=== PATIENT | female | born 1995 | race African-American/Black ===

== ENCOUNTER 2023-01-07 01:29 | Emergency (ER) | payer SELFPAY ==
--- NOTE | 2023-01-07 | ECG_ITS ---
Test Reason : CHEST PAIN Blood Pressure : / mmHG Vent. Rate : 086 BPM Atrial Rate : 086 BPM P-R Int : 166 ms QRS Dur : 078 ms QT Int : 376 ms P-R-T Axes : 041 051 024 degrees QTc Int : 449 ms Normal sinus rhythm Normal ECG No previous ECGs available Referred By: Generic ED Physician Electronically Signed By:Serafin Robb
[2023-01-07 01:39] VITALS: BP 141/96; PULSE 78; RESP 16; TEMP 36.9; O2SAT 100; BMI 30.1
--- NOTE | 2023-01-07 02:03 | MHC.EDTECH ---
PATIENT EKG TAKEN AND WAS READ BY PROVIDER ,BLOOD DRAWN AND SENT TO LAB .
[2023-01-07 02:05] LABS: Hematocrit 36.1 % (37.0-47.0); Hemoglobin 10.7 g/dl (12.0-16.0); Mean Corpuscular HGB Conc 29.6 g/dl (31.0-35.0); Mean Corpuscular Hemoglobin 21.3 pg (27.0-33.0); Mean Corpuscular Volume 71.9 fL (80.0-98.0); Mean Platelet Volume 9.3 fL (9.4-12.3); Platelet Count 345 X10*3/uL (160-400); Red Blood Count 5.02 X10*6/uL (4.20-5.50); Red Cell Distribution Width 17.3 % (11.0-16.0); White Blood Count 9.2 X10*3/uL (4.8-10.8)
[2023-01-07 02:29] LABS: Alanine Aminotransferase 15 U/L (0-31); Albumin Level 4.4 g/dL (3.5-5.0); Alkaline Phosphatase 65 U/L (39-117); Anion Gap 15 (12-20); Aspartate Amino Transferase 19 U/L (5-31); Bilirubin Total 0.3 mg/dL (0.0-1.0); Blood Urea Nitrogen 11 mg/dL (9-16); Calcium 9.2 mg/dL (8.4-10.2); Carbon Dioxide 22 mmol/L (22-29); Chloride 107 mmol/L (96-108); Creatinine Clr Calc Pharmacy 92.9; Estimated Glomerular Filt Rate > 60; Glucose Random 103 mg/dL (60-115); Potassium 3.5 mmol/L (3.3-5.1); Sodium 140 mmol/L (135-145); Total Protein 7.4 g/dL (6.5-8.0)
[2023-01-07 02:38] LABS: Troponin-I High Sensitivity < 2.7 ng/L (<3.5-17.0)
--- NOTE | 2023-01-07 04:11 | PC.NURSE ---
ATTEMPTED TO CALL PATIENT INTO ED FROM WAITING ROOM. REGISTRATION REPORTS THAT THE PATIENT LEFT STATING MY DOCTOR'S OFFICE WILL OPEN SOON
== END 2023-01-07 04:21 | disposition left against medical advice (07) ==
PROVIDERS: Emergency Provider Emergency Medicine
DX: R07.9 Chest pain, unspecified (principal)
CPT/HCPCS: 36415; 80053; 84484; 85027; 93005; 99283

== ENCOUNTER → 2023-01-07 01:50 | Outpatient (BNV) | payer SELFPAY | PROVIDERS: Emergency Provider Emergency Medicine; Visit Provider Internal Medicine Cardiovascular Disease | DX: R07.9 Chest pain, unspecified (principal) | CPT/HCPCS: 93010 ==

== ENCOUNTER 2023-02-01 18:13 | Emergency (ER) | payer OTHER, SELFPAY ==
[2023-02-01 18:38] VITALS: BP 127/77; PULSE 72; RESP 20; TEMP 36.7; O2SAT 100; BMI 30.3
--- NOTE | 2023-02-01 18:40 | ED.CHESTPAIN ---
HPI - Chest Pain General Chief Complaint: General Medical Stated Complaint: chest pain with cough, vomiting Related Data Allergies Allergy/AdvReac Type Severity Reaction Status Date / Time No Known Allergies Allergy Unverified 03/05/20 19:46 [No Known Allergies*] PMFSH Social History Social History Smoked in Last 30 Days: Yes Use of substances other than those prescribed or required for medical reasons: No Advance Directives: No Advance Directives Information Provided: No Physical Exam Vital Signs: Vital Signs: Last Vital Signs Temp 98.0 F 02/01/23 18:38 Pulse 72 02/01/23 18:38 Resp 20 02/01/23 18:38 BP 127/77 02/01/23 18:38 Pulse Ox 100 02/01/23 18:38 O2 Del Method Room Air 02/01/23 18:38 BMI result Body Mass Index 30.3 Course Course Course Narrative: RME: 27-year-old female presenting to the ED complaining of dry cough, chest congestion, chest pain, nausea and vomiting x 2 days. Reports 2 episodes of emesis today. EKG, labs, CXR, UA, viral testing ordered Full HPI, ROS and PE to be performed by primary ED provider. Discharge Plan Discharge Clinical Impression: Atypical chest pain Patient Disposition: Elopement Discharge Date/Time: 02/01/23 19:52
== END 2023-02-01 19:52 | disposition left against medical advice (07) ==
PROVIDERS: Emergency Provider Emergency Medicine
DX: R07.89 Other chest pain (principal); R05.9 Cough, unspecified; R11.2 Nausea with vomiting, unspecified
CPT/HCPCS: 99281

== ENCOUNTER 2023-02-02 15:42 | Emergency (ER) | payer OTHER, SELFPAY ==
--- NOTE | ~2023-02-02 | XR_ITS ---
EXAMINATION: XR CHEST CLINICAL INFORMATION: Left upper chest pressure. COMPARISON: None available. TECHNIQUE: Frontal view of the chest was obtained. FINDINGS: The lungs are clear. The heart and mediastinal structures are unremarkable. Mild thoracolumbar dextroscoliosis. XR/XR chest 1V IMPRESSION: No acute cardiopulmonary process.
--- NOTE | 2023-02-02 15:45 | ECG_ITS ---
Test Reason : cp Blood Pressure : / mmHG Vent. Rate : 097 BPM Atrial Rate : 097 BPM P-R Int : 142 ms QRS Dur : 070 ms QT Int : 330 ms P-R-T Axes : 048 050 031 degrees QTc Int : 419 ms Normal sinus rhythm Normal ECG When compared with ECG of 07-JAN-2023 01:50, No significant change was found Referred By: Valentine Courtney Electronically Signed By:HAKEEM DUCKWORTH
[2023-02-02 16:00] VITALS: BP 128/77; PULSE 85; RESP 17; TEMP 36.9; O2SAT 100; BMI 30.7
[2023-02-02 16:18] LABS: MANUAL DIFF FLAG NO
[2023-02-02 16:22] LABS: Basophils Percent Auto 0.3 % (0-2); Eosinophils Absolute Auto 0.1 X10*3/uL (0.0-0.4); Eosinophils Percent Auto 0.7 % (0-4); Hematocrit 34.6 % (37.0-47.0); Hemoglobin 10.6 g/dl (12.0-16.0); Imm Gran Abs Auto 0.01 X10*3/uL (0.00-0.03); Imm Gran Pct Auto 0.1 % (0.0-0.4); Lymphocytes Percent Auto 28.9 % (20-40); Mean Corpuscular HGB Conc 30.6 g/dl (31.0-35.0); Mean Corpuscular Hemoglobin 21.7 pg (27.0-33.0); Mean Corpuscular Volume 70.8 fL (80.0-98.0); Mean Platelet Volume 9.7 fL (9.4-12.3); Monocytes Absolute Auto 0.4 X10*3/uL (0.1-1.2); Monocytes Percent Auto 6.4 % (2-11); Neutrophils Absolute Auto 4.4 x10*3/uL (2.0-8.3); Neutrophils Percent Auto 63.6 % (45-73); Platelet Count 347 X10*3/uL (160-400); Red Blood Count 4.89 X10*6/uL (4.20-5.50); Red Cell Distribution Width 17.1 % (11.0-16.0); White Blood Count 6.9 X10*3/uL (4.8-10.8)
[2023-02-02 16:41] LABS: Anion Gap 12 (12-20); Blood Urea Nitrogen 6 mg/dL (9-16); Calcium 9.4 mg/dL (8.4-10.2); Carbon Dioxide 23 mmol/L (22-29); Chloride 107 mmol/L (96-108); Creatinine Clr Calc Pharmacy 83.5; Estimated Glomerular Filt Rate > 60; Glucose Random 117 mg/dL (60-115); Potassium 3.7 mmol/L (3.3-5.1); Sodium 138 mmol/L (135-145)
[2023-02-02 17:04] LABS: Troponin-I High Sensitivity < 2.7 ng/L (<3.5-17.0)
--- NOTE | 2023-02-02 17:49 | ED_ITS ---
HPI - General Adult General Chief complaint: General Medical Stated complaint: Fatigue/ L chest pain Time Seen by Provider: 02/02/23 17:08 Source: patient Mode of arrival: ambulatory Limitations: no limitations History of Present Illness HPI narrative: Patient comes to the emergency room complaining of 3 days chest pressure that moves around the chest anywhere between the left to the middle to the right, occasional palpitations. No chest pain or shortness of breath. No nausea vomiting diarrhea, no recent URI symptoms, no fever chills. Related Data Allergies Allergy/AdvReac Type Severity Reaction Status Date / Time No Known Allergies Allergy Unverified 03/05/20 19:46 [No Known Allergies*] Review of Systems Review of Systems: Constitutional : No Weight loss, No Fever, No Chills, No Night Sweats, No Fatigue, No Malaise ENT/Mouth : No Hearing loss, No Ear Pain, No Nasal Congestion, No Sinus Pain, No Hoarseness, No sore throat, No Rhinorrhea, No Swallowing Difficulty Eyes: No Eye Pain, No Swelling, No Redness, No Foreign Body, No Discharge, No Vision Changes Cardiovascular : No Chest Pain, complaining of intermittent chest pressure that intermittently moves from the left side to the right side of the chest No SOB, No Dyspnea on Exertion, No Orthopnea, No Edema, complaining of intermittent Palpitations Respiratory : No Cough, No Sputum, No Wheezing, No Smoke Exposure, No Dyspnea Gastrointestinal : No Nausea, No Vomiting, No Diarrhea, No Constipation, No abdominal Pain, No Hematochezia, No Melena Genitourinary : no irregular bleeding, No Dysuria, No Urinary Frequency, No Hematuria, No Urinary Incontinence, No Urgency, No Flank Pain, No Urinary Flow Changes, No Hesitancy Musculoskeletal : No joint pain, No Myalgias, No Joint Swelling Skin : No Skin Lesions, No rash Neuro : No Weakness, No Numbness, No Paresthesias, No Loss of Consciousness, No Dizziness, No Headache Psych : No Anxiety/Panic, No Depression, No SI/HI/AH/VH, No Social Issues, Heme/Lymph: No Bruising, No Bleeding,No Lymphadenopathy Endocrine : No Polyuria, No Polydipsia, No Temperature Intolerance PMFSH Social History Social History Advance Directives: No Advance Directives Information Provided: No Physical Exam ED Vital Signs: Vital Signs - 24 hr 02/02/23 16:00 Temperature 98.4 F Pulse Rate 85 Respiratory Rate 17 Blood Pressure 128/77 Pulse Oximetry 100 Oxygen Delivery Method Room Air BMI result Body Mass Index 30.7 Const Other: Appearance: Alert. Oriented X3. No acute distress. Eyes: Pupils equal, round and reactive to light. ENT: Pharynx normal. Neck: Normal inspection. Neck supple. No lymph nodes noted. No crepitus CVS: Normal heart rate and rhythm. Pulses normal. Normal S1 and S2 Respiratory: No respiratory distress. Breath sounds normal. No Wheezing. No rales Abdomen: Soft and nontender. No rigidity. No distention. Skin: Skin warm and dry. Normal skin color. Normal skin turgor. Extremities: No lower extremity edema. No Lacerations. No Rash Neuro: Oriented X 3. No motor deficit. No sensory deficit. Moving all extremities. No slurred speech. CN 2 through 12 grossly intact Psych: calm, cooperative, normal affect Medical Decision Making Medical Decision Making [facility] Narrative: -, heart rate 97, no ST segment depression or elevation, no T-wave inversion, QTC 419 -patient's troponin negative, white blood cell count normal, chemistry normal -my interpretation of chest x-ray: No infiltrates, no rib fractures -while patient was in the emergency room, no arrhythmias were captured, patient asymptomatic. Discussed with the patient that if she continues having intermittent symptoms, the next best step would be a Holter monitor evaluation, referred through her primary care physician Differential Diagnosis Differential Diagnoses: The differential diagnosis associated with the presentation includes (Tachycardia, atrial flutter, atrial fibrillation, anxiety, pleurisy) Admission/Observation Consideration of admission/observation: Escalation of care including admission/observation considered (Patient came in complaining of chest pain, admission was considered) Lab Data [facility] Lab Attestation statement: I reviewed the patient's lab results. 02/02/23 16:13 02/02/23 16:13 Labs: Lab Results 02/02/23 02/02/23 02/02/23 Range/Units 16:13 16:13 16:13 WBC 6.9 (4.8-10.8) X10*3/uL RBC 4.89 (4.20-5.50) X10*6/uL Hgb 10.6 L (12.0-16.0) g/dl Hct 34.6 L (37.0-47.0) % MCV 70.8 L (80.0-98.0) fL MCH 21.7 L (27.0-33.0) pg MCHC 30.6 L (31.0-35.0) g/dl RDW 17.1 H (11.0-16.0) % Plt Count 347 (160-400) X10*3/uL MPV 9.7 (9.4-12.3) fL Immature Gran % (Auto) 0.1 (0.0-0.4) % Neut % (Auto) 63.6 (45-73) % Lymph % (Auto) 28.9 (20-40) % [place] % (Auto) 6.4 (2-11) % Eos % (Auto) 0.7 (0-4) % Baso % (Auto) 0.3 (0-2) % Lymph # (Auto) 2.0 (1.2-4.9) X10*3/uL [place] # (Auto) 0.4 (0.1-1.2) X10*3/uL Eos # (Auto) 0.1 (0.0-0.4) X10*3/uL Baso # (Auto) 0.0 (0.0-0.2) X10*3/uL Abs Immat Gran (auto) 0.01 (0.00-0.03) X10*3/uL Absolute Neuts (auto) 4.4 (2.0-8.3) x10*3/uL Absolute Nucleated RBC 0.000 (0.0-0.012) X10*3/uL Nucleated RBC % (auto) 0.0 (0.0-0.2) /100WBC Sodium 138 (135-145) mmol/L Potassium 3.7 (3.3-5.1) mmol/L Chloride 107 (96-108) mmol/L Carbon Dioxide 23 (22-29) mmol/L Anion Gap 12 (12-20) BUN 6 L (9-16) mg/dL Creatinine 0.90 (0.5-1.4) mg/dL Estim Creat Clear Calc 83.5 Estimated GFR > 60 Random Glucose 117 H (60-115) mg/dL Calcium 9.4 (8.4-10.2) mg/dL Troponin I High Sens < 2.7 (<3.5-17.0) ng/L Independent Interpretation I performed an independent interpretation of an: Plain X-Ray Radiology Impression Discussion of test interpretation with radiology: I have reviewed the radiologist's reading. Radiologist Impression: FINDINGS: The lungs are clear. The heart and mediastinal structures are unremarkable. Mild thoracolumbar dextroscoliosis. XR/XR chest 1V IMPRESSION: No acute cardiopulmonary process. Critical Care Time Critical Care Time Critical Care Time: Yes Total Critical Care Time: 45 Attestation: I have personally provided critical care time. Time includes review of lab data, radiology results, discussion with consultants, and monitoring for potential decompensation. Intervention performed as documented. Discharge Plan Discharge Clinical Impression: Atypical chest pain, Palpitations Patient Disposition: Home, Self-Care Instructions: Heart Palpitations (ED), Chest Pain (ED) Additional Instructions: Please follow-up with your primary care physician tomorrow. If you have any w orsening or new symptoms, please return to the emergency room or call 911
[2023-02-02 17:59] VITALS: BP 114/77; PULSE 85; RESP 15; O2SAT 100
== END 2023-02-02 18:35 | disposition home or self-care (01) ==
PROVIDERS: Emergency Provider Emergency Medicine
DX: R07.89 Other chest pain (principal); R00.2 Palpitations
CPT/HCPCS: 36415; 71045; 80048; 84484; 85025; 93005; 99283; 99284

== ENCOUNTER 2023-02-19 03:23 | Emergency (ER) | payer OTHER, SELFPAY ==
[2023-02-19 03:31] VITALS: BP 132/92; PULSE 86; RESP 12; TEMP 37.2; O2SAT 100; BMI 29.3
--- NOTE | 2023-02-19 03:46 | ECG_ITS ---
Test Reason : chest pain Blood Pressure : / mmHG Vent. Rate : 070 BPM Atrial Rate : 070 BPM P-R Int : 164 ms QRS Dur : 080 ms QT Int : 390 ms P-R-T Axes : 048 060 032 degrees QTc Int : 421 ms Normal sinus rhythm with sinus arrhythmia Possible Left atrial enlargement Borderline ECG When compared with ECG of 02-FEB-2023 15:50, No significant change was found Referred By: Generic ED Physician Electronically Signed By:HAKEEM DUCKWORTH
--- NOTE | 2023-02-19 04:11 | PC.NURSE ---
PT AOx4, pt reporting intermittnet substernal CP that worsens when lying down, that does not radiate any where. EKG obtained and reviewed by provider, blood drawn and sent to lab. Pt stated i was driving and my left calf started tightening, more difficulty walking upstairs, felt dizzy and have had some palpitations.
[2023-02-19 04:12] LABS: MANUAL DIFF FLAG NO
[2023-02-19 04:13] LABS: Basophils Percent Auto 0.5 % (0-2); Eosinophils Absolute Auto 0.1 X10*3/uL (0.0-0.4); Eosinophils Percent Auto 1.1 % (0-4); Hematocrit 34.8 % (37.0-47.0); Hemoglobin 10.4 g/dl (12.0-16.0); Imm Gran Abs Auto 0.01 X10*3/uL (0.00-0.03); Imm Gran Pct Auto 0.2 % (0.0-0.4); Lymphocytes Absolute Auto 2.6 X10*3/uL (1.2-4.9); Lymphocytes Percent Auto 40.4 % (20-40); Mean Corpuscular HGB Conc 29.9 g/dl (31.0-35.0); Mean Corpuscular Hemoglobin 21.2 pg (27.0-33.0); Mean Corpuscular Volume 70.9 fL (80.0-98.0); Mean Platelet Volume 8.8 fL (9.4-12.3); Monocytes Absolute Auto 0.5 X10*3/uL (0.1-1.2); Monocytes Percent Auto 8.1 % (2-11); Neutrophils Absolute Auto 3.2 x10*3/uL (2.0-8.3); Neutrophils Percent Auto 49.7 % (45-73); Platelet Count 313 X10*3/uL (160-400); Red Blood Count 4.91 X10*6/uL (4.20-5.50); Red Cell Distribution Width 17.1 % (11.0-16.0); White Blood Count 6.5 X10*3/uL (4.8-10.8)
[2023-02-19 04:19] VITALS: PULSE 86
--- NOTE | 2023-02-19 04:26 | ED_ITS ---
HPI - Chest Pain General Chief Complaint: Chest Pain Stated Complaint: Chest discomfort Time Seen by Provider: 02/19/23 04:22 Source: patient Mode of arrival: ambulatory Limitations: no limitations History of Present Illness HPI narrative: Patient with anxiety and frequent chest pain been here 2 times last month been having left parasternal chest pain for last 1 week was seen at [facility] 2 days ago with workup negative comes here for similar chest pain which increases on palpation and movements of the upper extremities and taking deep breath no fever no chills no cough Related Data Previous Rx's Medication Instructions Recorded ibuprofen 600 mg tablet 600 mg PO Q6H PRN fever or pain 02/19/23 #30 tabs lorazepam 1 mg tablet (Ativan) 1 mg PO BEDTIME PRN anxiety/sleep 02/19/23 #10 tabs Allergies Allergy/AdvReac Type Severity Reaction Status Date / Time tomato Allergy Rash Verified 02/19/23 04:15 Review of Systems Review of Systems: Yes all other systems are reviewed and are negative [facility] Social History Social History Alcohol intake: never Smoked in Last 30 Days: No Use of substances other than those prescribed or required for medical reasons: No Advance Directives: No Advance Directives Information Provided: Yes Patient : No Physical Exam Vital Signs: Vital Signs: Last Vital Signs Temp 98.9 F 02/19/23 03:31 Pulse 86 02/19/23 03:31 Resp 12 02/19/23 03:31 BP 132/92 H 02/19/23 03:31 Pulse Ox 100 02/19/23 03:31 O2 Del Method Room Air 02/19/23 03:31 BMI result Body Mass Index 29.3 Appearance: Alert. Oriented X3. No acute distress. Anxious Eyes: PERRLA, No Nystagmus ENT: Pharynx normal. Oral Mucosa moist Neck: Normal inspection. Neck supple. CVS: Normal heart rate and rhythm. Pulses normal. Mid chest wall tenderness left 2nd ICS tenderness Respiratory: No respiratory distress. Equal air entry bilateral, no whe ezing/rales/rhonchi Abdomen: Soft and nontender. Bowel sounds are present, Skin: Skin warm and dry. Normal skin color. Normal skin turgor. Extremities: No lower extremity edema. No calf tenderness Neuro: Oriented X 3. No motor deficit. Medications Administered Discontinued Medications Generic Name Dose Route Start Last Admin Trade Name Chris PRN Reason Stop Dose Admin Ibuprofen 600 mg 02/19/23 04:33 02/19/23 05:25 Ibuprofen 600 Mg Tablet PO 02/19/23 04:34 600 mg ONCE ONE Administration Medical Decision Making Medical Decision Making [facility] Narrative: Patient has atypical chest pain for a month been to hospital multiple times multiple assessed troponin negative EKG normal it seems to be anxious had d ifficulty in sleeping. Will discharge patient home on Ativan for anxiety and ibuprofen for pain heart score 0 Differential Diagnosis Differential Diagnoses: The differential diagnosis associated with the presentation includes Costochondritis/atypical chest pain/chest pain/angina/anxiety Lab Data [facility] Lab Attestation statement: I reviewed the patient's lab results. 02/19/23 03:55 02/19/23 03:55 Labs: Lab Results 02/19/23 02/19/23 02/19/23 Range/Units 03:55 03:55 03:55 WBC 6.5 (4.8-10.8) X10*3/uL RBC 4.91 (4.20-5.50) X10*6/uL Hgb 10.4 L (12.0-16.0) g/dl Hct 34.8 L (37.0-47.0) % MCV 70.9 L (80.0-98.0) fL MCH 21.2 L (27.0-33.0) pg MCHC 29.9 L (31.0-35.0) g/dl RDW 17.1 H (11.0-16.0) % Plt Count 313 (160-400) X10*3/uL MPV 8.8 L (9.4-12.3) fL Immature Gran % (Auto) 0.2 (0.0-0.4) % Neut % (Auto) 49.7 (45-73) % Lymph % (Auto) 40.4 H (20-40) % [place] % (Auto) 8.1 (2-11) % Eos % (Auto) 1.1 (0-4) % Baso % (Auto) 0.5 (0-2) % Lymph # (Auto) 2.6 (1.2-4.9) X10*3/uL [place] # (Auto) 0.5 (0.1-1.2) X10*3/uL Eos # (Auto) 0.1 (0.0-0.4) X10*3/uL Baso # (Auto) 0.0 (0.0-0.2) X10*3/uL Abs Immat Gran (auto) 0.01 (0.00-0.03) X10*3/uL Absolute Neuts (auto) 3.2 (2.0-8.3) x10*3/uL Absolute Nucleated RBC 0.000 (0.0-0.012) X10*3/uL Nucleated RBC % (auto) 0.0 (0.0-0.2) /100WBC Sodium 140 (135-145) mmol/L Potassium 3.9 (3.3-5.1) mmol/L Chloride 108 (96-108) mmol/L Carbon Dioxide 23 (22-29) mmol/L Anion Gap 13 (12-20) BUN 6 L (9-16) mg/dL Creatinine 0.85 (0.5-1.4) mg/dL Estim Creat Clear Calc 89.9 Estimated GFR > 60 Random Glucose 121 H (60-115) mg/dL Calcium 9.9 (8.4-10.2) mg/dL Troponin I High Sens < 2.7 (<3.5-17.0) ng/L Independent Interpretation I performed an independent interpretation of an: EKG Interpretation: Normal sinus rhythm heart rate 70 beats per minute normal interval normal axis no acute ischemia Discharge Plan Discharge Clinical Impression: Costalchondritis, Anxiety Patient Disposition: Home, Self-Care Instructions: Costochondritis (ED), Anxiety (ED) Additional Instructions: Take ibuprofen for pain and Ativan for anxiety and sleep Follow with PCP as needed Prescriptions: New ibuprofen 600 mg tablet 600 mg PO Q6H PRN (Reason: fever or pain) Qty: 30 0RF lorazepam [Ativan] 1 mg tablet 1 mg PO BEDTIME PRN (Reason: anxiety/sleep) Qty: 10 0RF Interventions: ED Discharge Assessment Last Done: 02/19/23 05:36 Discharge Date/Time: 02/19/23 05:36
[2023-02-19 04:28] LABS: Anion Gap 13 (12-20); Blood Urea Nitrogen 6 mg/dL (9-16); Calcium 9.9 mg/dL (8.4-10.2); Carbon Dioxide 23 mmol/L (22-29); Chloride 108 mmol/L (96-108); Creatinine Clr Calc Pharmacy 89.9; Estimated Glomerular Filt Rate > 60; Glucose Random 121 mg/dL (60-115); Potassium 3.9 mmol/L (3.3-5.1); Sodium 140 mmol/L (135-145)
[2023-02-19 04:47] LABS: Troponin-I High Sensitivity < 2.7 ng/L (<3.5-17.0)
[2023-02-19] MEDS: Ibuprofen 600 MG TABLET PO (05:25)
== END 2023-02-19 05:36 | disposition home or self-care (01) ==
PROVIDERS: Emergency Provider Internal Medicine; PCP Nurse Practitioner Family
DX: R07.89 Other chest pain (principal); M94.0 Chondrocostal junction syndrome [Tietze]; F41.1 Generalized anxiety disorder; F43.0 Acute stress reaction; Z79.899 Other long term (current) drug therapy
CPT/HCPCS: 36415; 80048; 84484; 85025; 93005; 99284

== ENCOUNTER 2023-04-07 10:21 | Emergency (ER) | payer BC, MEDICAID, SELFPAY ==
--- NOTE | 2023-04-07 10:29 | ECG_ITS ---
Test Reason : chest tightness Blood Pressure : / mmHG Vent. Rate : 082 BPM Atrial Rate : 082 BPM P-R Int : 154 ms QRS Dur : 074 ms QT Int : 366 ms P-R-T Axes : 057 050 025 degrees QTc Int : 427 ms Normal sinus rhythm Normal ECG When compared with ECG of 19-FEB-2023 03:53, No significant change was found Referred By: Generic ED Physician Electronically Signed By:WENDI ESPINO MD
[2023-04-07 10:44] VITALS: BP 130/76; PULSE 85; RESP 19; TEMP 36.6; O2SAT 99; BMI 29.3
[2023-04-07 11:08] LABS: MANUAL DIFF FLAG NO
[2023-04-07 11:11] LABS: Appearance Urine Clear; Color Urine Yellow; Glucose Urine UA Negative (Negative); Leukocyte Esterase Urine Negative (Negative); Nitrite Urine Negative (Negative); PH 6.5 (5.0-9.0); Specific Gravity - Urine <= 1.005 (1.005-1.025); Urine Blood Negative (Negative); Urine Ketones Negative (Negative); Urine Protein Negative (Neg-Trace)
[2023-04-07 11:14] LABS: UPreg QC Valid YES; Urine Pregnancy NEGATIVE (NEGATIVE)
[2023-04-07 11:15] LABS: Basophils Percent Auto 0.5 % (0-2); Eosinophils Absolute Auto 0.1 X10*3/uL (0.0-0.4); Eosinophils Percent Auto 1.3 % (0-4); Hematocrit 41.5 % (37.0-47.0); Hemoglobin 12.6 g/dl (12.0-16.0); Imm Gran Abs Auto 0.02 X10*3/uL (0.00-0.03); Imm Gran Pct Auto 0.3 % (0.0-0.4); Lymphocytes Percent Auto 31.5 % (20-40); Mean Corpuscular HGB Conc 30.4 g/dl (31.0-35.0); Mean Corpuscular Hemoglobin 23.1 pg (27.0-33.0); Mean Platelet Volume 10.3 fL (9.4-12.3); Monocytes Absolute Auto 0.6 X10*3/uL (0.1-1.2); Monocytes Percent Auto 9.4 % (2-11); Neutrophils Absolute Auto 3.5 x10*3/uL (2.0-8.3); Platelet Count 274 X10*3/uL (160-400); Red Blood Count 5.46 X10*6/uL (4.20-5.50); Red Cell Distribution Width 20.5 % (11.0-16.0); White Blood Count 6.2 X10*3/uL (4.8-10.8)
[2023-04-07 11:24] LABS: Anion Gap 14 (12-20); Blood Urea Nitrogen 9 mg/dL (9-16); Calcium 9.8 mg/dL (8.4-10.2); Carbon Dioxide 20 mmol/L (22-29); Chloride 107 mmol/L (96-108); Creatinine Clr Calc Pharmacy 101.9; Estimated Glomerular Filt Rate > 60; Glucose Random 98 mg/dL (60-115); Potassium 3.5 mmol/L (3.3-5.1); Sodium 137 mmol/L (135-145)
[2023-04-07 11:33] LABS: Troponin-I High Sensitivity < 2.7 ng/L (<3.5-17.0)
[2023-04-07 11:35] LABS: COVID-19 Test Negative (Negative); IDNOW Serial# BCCEAD1C
--- NOTE | 2023-04-07 16:28 | ED_ITS ---
HPI - General Adult General Chief complaint: General Medical Stated complaint: chest discomfort and nausea Time Seen by Provider: 04/07/23 16:28 Source: patient Mode of arrival: ambulatory Limitations: no limitations History of Present Illness HPI narrative: Patient is a 27 year old assigned female at with a history of palpitations presenting to the emergency department today with palpitations. Patient states that she has been dealing with this for awhile and was previously prescribed a beta-idalia. Patient states that her PCP ordered a holter monitor for 48 hours and had her stop her beta-idalia. Patient states that she has not been taking her beta-idalia since the holter monitor came off. Patient denies any dizziness, lightheadedness, abdominal pain, nausea, vomiting, fever, chills, blurry vision, double vision, loss of vision, chest pain, difficulty breathing, shortness of breath, back pain, night sweats, pain with urination, increased urinary frequency, increased urinary urgency, blood in her urine or stool, syncope or a near syncopal episode, recent trauma or falls, bowel incontinence, bladder incontinence, bowel retention, bladder retention, or any other complaints at this time. Onset (ago): week(s) Severity: mild Relieving factors: none Exacerbating factors: none Associated symptoms: denies other symptoms Treatments prior to arrival: none Related Data Previous Rx's Medication Instructions Recorded ibuprofen 600 mg tablet 600 mg PO Q6H PRN fever or pain 02/19/23 #30 tabs lorazepam 1 mg tablet (Ativan) 1 mg PO BEDTIME PRN anxiety/sleep 02/19/23 #10 tabs Allergies Allergy/AdvReac Type Severity Reaction Status Date / Time tomato Allergy Rash Verified 04/07/23 10:44 Review of Systems 2 Constitutional: Constitutional: Reports no additional constitutional complaints, Denies chills, Denies fever(s) and Denies night sweats Eyes: Eyes: Reports no additional eye complaints, Denies blurry vision, Denies change in vision, Denies diplopia, Denies eye discharge, Denies loss of vision and Denies eye pain ENT: Denies dizziness Cardiovascular: Cardiovascular: Reports no additional cardiovascular complaints, Denies chest pain, Denies lightheadedness, Denies Loss of Consciousness, Reports palpitations and Denies dyspnea Respiratory: Respiratory: Reports no additional respiratory complaints and Denies dyspnea Gastrointestinal: Gastrointestinal: Reports no additional gastrointestinal complaints, Denies abdominal pain, Denies melena, Denies hematochezia, Denies change in bowel habits and Denies change in stool character Genitourinary: Genitourinary: Denies hematuria, Denies urinary frequency, Denies dysuria, Denies urinary incontinence, Denies urinary hesitancy and Denies urinary urgency Musculoskeletal: Musculoskeletal: Reports no additional musculoskeletal complaints, Denies numbness and Denies tingling Neurologic: Denies dizziness, Denies loss of vision, Denies numbness and Denies tingling Psychiatric: Psychiatric: Reports no additional psychiatric complaints Endocrine: Endocrine: Reports no additional endocrine complaints and Reports palpitations Hematologic/Lymphatic: Hematologic/Lymphatic: Reports no additional hematologic/lymphatic complaints Allergic/Immunologic: Allergic/Immunologic: Reports no additional allergic/immunologic complaints PMFSH Past Medical History Attestation statement: The following information was validated with the patient. Source: old records reviewed and nursing notes reviewed Social History Social History Alcohol intake: never Advance Directives: No Physical Exam ED Vital Signs: Vital Signs - 24 hr 04/07/23 10:44 04/07/23 16:31 Temperature 98 F Pulse Rate 85 78 Respiratory Rate 19 16 Blood Pressure 130/76 126/89 Pulse Oximetry 99 98 Oxygen Delivery Method Room Air Room Air BMI result Body Mass Index 29.3 Const General: cooperative, no acute distress, alert and awake Nutritional Appearance: well nourished Orientation/consciousness: patient oriented x3 Limitations: no limitations HENMT Head: Yes normal to inspection and Yes atraumatic Ears: hearing grossly normal bilaterally and external ears normal General nose exam: Normal external nose present, no nasal discharge noted and no epistaxis Face and sinus: Yes normal facial exam, No abrasion and No laceration Mouth: Normal oral and palatal mucosa present, no drooling and no muffled voice Eyes General: appearance normal, both eyes and all related structures Periorbital: periorbital findings normal Eyelids: Yes eyelids normal Conjunctivae: conjunctivae normal Pupils: Equal, round and reactive pupils present EOM: EOMs intact bilaterally Neck Neck: Yes normal visual inspection, Yes full ROM and Yes no lymphadenopathy Chest Chest palpation & inspection: normal inspection of the chest Resp Effort & Inspection: normal respiratory effort and able to speak in complete sentences Auscultation: clear to auscultation bilaterally Cardio Rate: regular rate Rhythm: regular rhythm GI Inspection: Yes normal to inspection Neuro General: patient oriented x3 and moves all extremities Cranial nerves: Yes Equal, round and reactive pupils present Cognition (Neuro): normal cognition Motor exam (neuro): 5/5 motor strength present throughout Sensory Exam: Normal double simultaneous stimulation for sensation Coordination: [id number] test normal Extrem General: Yes normal to inspection, Yes full ROM and Yes capillary refill normal Psych Appearance: grossly normal Mental Status: mental status grossly normal Affect: normal affect Attitude: cooperative Thought process: Normal thought process present Thought content: Normal thought content present Insight: Good insight present (Psych) Medical Decision Making Medical Decision Making MDM Narrative: Patient is a 27 year old assigned female at with a history of palpitations presenting to the emergency department today with palpitations. Patient's physical exam was unremarkable. Patient's blood work was unremarkable. Patient's urine showed no acute process. Patient's EKG was unremarkable. I explained my physical exam findings as well as all test results to the patient. I answered all questions asked by the patient. I recommended the patient restart her beta- idalia and follow up with a plant nursery worker. I stressed the importance of the patient taking her medication as prescribed. I stressed the importance of the patient following up with her primary care provider. I stressed the importance of the patient returning to the emergency department immediately if her symptoms were to worsen or if she were to develop any dizziness, shortness of breath, difficulty breathing, chest pain, blurry vision, loss of vision, nausea, vomiting, abdominal pain, fever, chills, back pain, or any other complaints. Patient verbalized agreement and understanding with this treatment plan and discharge. Differential Diagnosis Differential Diagnoses: The differential diagnosis associated with the presentation includes Palpitations STEMI NSTEMI Admission/Observation Consideration of admission/observation: Escalation of care including admission/observation considered Patient would have been admitted to the hospital had her work up had any findings where hospital admission was appropriate and her clinical presentation warranted hospital admission. Lab Data [facility] Lab Attestation statement: I reviewed the patient's lab results. My interpretation of these studies and their corresponding values is that they are grossly normal. 04/07/23 11:02 04/07/23 11:02 Labs: Lab Results 04/07/23 Range/Units 11:02 WBC 6.2 (4.8-10.8) X10*3/uL RBC 5.46 (4.20-5.50) X10*6/uL Hgb 12.6 D (12.0-16.0) g/dl Hct 41.5 (37.0-47.0) % MCV 76.0 L (80.0-98.0) fL MCH 23.1 L (27.0-33.0) pg MCHC 30.4 L (31.0-35.0) g/dl RDW 20.5 H (11.0-16.0) % Plt Count 274 (160-400) X10*3/uL MPV 10.3 (9.4-12.3) fL Immature Gran % (Auto) 0.3 (0.0-0.4) % Neut % (Auto) 57.0 (45-73) % Lymph % (Auto) 31.5 (20-40) % [place] % (Auto) 9.4 (2-11) % Eos % (Auto) 1.3 (0-4) % Baso % (Auto) 0.5 (0-2) % Lymph # (Auto) 2.0 (1.2-4.9) X10*3/uL [place] # (Auto) 0.6 (0.1-1.2) X10*3/uL Eos # (Auto) 0.1 (0.0-0.4) X10*3/uL Baso # (Auto) 0.0 (0.0-0.2) X10*3/uL Abs Immat Gran (auto) 0.02 (0.00-0.03) X10*3/uL Absolute Neuts (auto) 3.5 (2.0-8.3) x10*3/uL Absolute Nucleated RBC 0.000 (0.0-0.012) X10*3/uL Nucleated RBC % (auto) 0.0 (0.0-0.2) /100WBC Sodium 137 (135-145) mmol/L Potassium 3.5 (3.3-5.1) mmol/L Chloride 107 (96-108) mmol/L Carbon Dioxide 20 L (22-29) mmol/L Anion Gap 14 (12-20) BUN 9 (9-16) mg/dL Creatinine 0.75 (0.5-1.4) mg/dL Estim Creat Clear Calc 101.9 Estimated GFR > 60 Random Glucose 98 (60-115) mg/dL Calcium 9.8 (8.4-10.2) mg/dL Troponin I High Sens < 2.7 (<3.5-17.0) ng/L Urine Color Yellow Urine Appearance Clear Urine pH 6.5 (5.0-9.0) Ur Specific [place] <= 1.005 (1.005-1.025) Urine Protein Negative (Neg-Trace) mg/dL Urine Glucose (UA) Negative (Negative) mg/dL Urine Ketones Negative (Negative) mg/dL Urine Blood Negative (Negative) Urine Nitrite Negative (Negative) Ur Leukocyte Esterase Negative (Negative) Urine Test NEGATIVE (NEGATIVE) COVID-19 (DEVEN) Negative (Negative) COVID-19 Clin Com See Note Independent Interpretation I performed an independent interpretation of an: EKG Interpretation: Vent. Rate: 082 BPM Atrial Rate: 082 BPM P-R Int: 154 ms QRS Dur: 074 ms QT Int: 366 ms P-R-T Axes: 057 050 025 degrees QTc Int: 427 ms Normal sinus rhythm Normal ECG When compared with ECG of 19-FEB-2023 03:53, No significant change was found Electronically Signed By:WENDI ESPINO MD Dictated By: Cosme Espino MD Signed By: Electronically signed by Cosme Espino MD 04/07/23 1243 Discharge Plan Discharge Clinical Impression: Heart palpitations Patient Disposition: Home, Self-Care Instructions: Heart Palpitations (DC) Additional Instructions: Follow up with your primary care provider and a plant nursery worker. Return to the emergency department immediately if your symptoms worsen or if you develop any dizziness, shortness of breath, difficulty breathing, chest pain, blurry vision, loss of vision, nausea, vomiting, abdominal pain, fever, chills, back pain, or any other complaints. Prescriptions: No Action ibuprofen 600 mg tablet 600 mg PO Q6H PRN (Reason: fever or pain) Qty: 30 0RF lorazepam [Ativan] 1 mg tablet 1 mg PO BEDTIME PRN (Reason: anxiety/sleep) Qty: 10 0RF [place] [facility] [place] [facility] [place] (Call to establish and follow up with a plant nursery worker. ) Alexa Lopes NP [Primary Care Provider] - Stand Alone Forms: Work/School Release Interventions: ED Discharge Assessment Last Done: 04/07/23 16:35 Print Language: Lao
[2023-04-07 16:31] VITALS: BP 126/89; PULSE 78; RESP 16; O2SAT 98
--- NOTE | 2023-04-07 16:31 | PC.NURSE ---
SEEN BY PROVIDER IN TRIAGE , PLAN FOR CONSULT FOR CARDIOLOGY AND RESUME BETA MEGHAN
== END 2023-04-07 16:36 | disposition home or self-care (01) ==
LOC: HO.ED 16:33
PROVIDERS: Emergency Provider Emergency Medicine; PCP Nurse Practitioner Family
DX: R00.2 Palpitations (principal); R07.89 Other chest pain; R11.2 Nausea with vomiting, unspecified; Z11.52 Encounter for screening for COVID-19; Z20.822 Contact with and (suspected) exposure to COVID-19; Z79.899 Other long term (current) drug therapy
CPT/HCPCS: 80048; 81003; 81025; 84484; 85025; 87635; 93005; 99283

== ENCOUNTER 2023-04-23 13:07 | Emergency (ER) | payer BC, MEDICAID, SELFPAY ==
--- NOTE | 2023-04-23 13:11 | ED_ITS ---
HPI - Headache General Chief Complaint: Arrhythmia/Palpitations Stated Complaint: Head pressure Time Seen by Provider: 04/23/23 13:52 Source: patient Mode of arrival: ambulatory Limitations: no limitations History of Present Illness HPI Narrative: This is a 27 years old female presented to emergency department complaining of palpitation chest pain she is on propanolol since about 3 weeks she has an appointment with a car rental deliverer in few days. She is feeling better at this time she is in sinus rhythm , denies any fever chills shortness of breath Onset description: gradually Severity: mild Quality & Timing: aching Exacerbating factors: none Relieving factors: nothing Related Data Previous Rx's Medication Instructions Recorded ibuprofen 600 mg tablet 600 mg PO Q6H PRN fever or pain 02/19/23 #30 tabs lorazepam 1 mg tablet (Ativan) 1 mg PO BEDTIME PRN anxiety/sleep 02/19/23 #10 tabs Allergies Allergy/AdvReac Type Severity Reaction Status Date / Time tomato Allergy Rash Verified 04/23/23 13:16 Review of Systems 2 Constitutional: Constitutional: Reports no additional constitutional complaints Cardiovascular: Cardiovascular: Reports chest pain and Reports other (palpitations) Neurologic: Reports other (mild johnson) [facility] [place] Past Medical History Attestation statement: The following information was validated with the patient. [facility] [place] Narrative: Palpitations Social History Social History Alcohol intake: former Smoked in Last 30 Days: No Use of substances other than those prescribed or required for medical reasons: No Advance Directives: No Physical Exam 2 Vital Signs: Vital Signs: Last Vital Signs Temp 97.6 F 04/23/23 13:17 Pulse 66 04/23/23 15:12 Resp 18 04/23/23 13:17 BP 116/77 04/23/23 15:12 Pulse Ox 100 04/23/23 13:17 O2 Del Method Room Air 04/23/23 13:17 BMI result Body Mass Index 29.4 Const: General: cooperative, healthy appearing, comfortable, no acute distress, well developed and awake Nutritional Appearance: well nourished Orientation/consciousness: patient oriented x3 Limitations: no limitations HEENT: Head: Yes normal to inspection General nose exam: Normal external nose present Face and sinus: Yes normal facial exam Mouth: Normal oral and palatal mucosa present Throat: Yes posterior oropharynx normal Neck: Neck: Yes normal visual inspection Thyroid: Thyroid normal Chest: Chest palpation & inspection: normal inspection of the chest Resp: Effort & Inspection: normal respiratory effort Auscultation: clear to auscultation bilaterally Cardio: Jugular venous distension: no JVD Rate: regular rate Rhythm: r egular rhythm GI: Inspection: Yes normal to inspection Palpation (GI): Soft to palpation, not firm and nontender Skin: General skin exam: no rashes or lesions noted and elasticity normal Neuro: General: patient oriented x3 Cranial nerves: Yes CN's II-XII intact bilaterally Cognition (Neuro): normal cognition Gait exam (Neuro): Normal gait present Motor exam (neuro): 5/5 motor strength present throughout Course Course Course Narrative: RME: 27yo F w/no sig PMHx c/o heart palpitations this morning prior to taking Propranolol this morning. Reports continued CP and head pressure. Has been on Propranolol x 3 weeks by PCP. Patient was recently seen in the ED on 04/07/23 for similar sx. EKG, labs ordered Full HPI, ROS and PE to be performed by primary ED provider. Reevaluation(s) Reevaluation #1: asymtomatic Time: 15:20 Medical Decision Making Medical Decision Making [facility] Narrative: Patient presented with palpitations we will obtain an electrocardiogram will obtain labs and reassess Differential Diagnosis Differential Diagnoses: The differential diagnosis associated with the presentation includes SVT/Hayfever/acute coronary syndrome Admission/Observation Consideration of admission/observation: Escalation of care including admission/observation considered Lab Data 04/23/23 14:21 04/23/23 14:21 Labs: Lab Results 04/23/23 Range/Units 14:21 WBC 6.2 (4.8-10.8) X10*3/uL RBC 6.02 H (4.20-5.50) X10*6/uL Hgb 14.3 (12.0-16.0) g/dl Hct 46.5 (37.0-47.0) % MCV 77.2 L (80.0-98.0) fL MCH 23.8 L (27.0-33.0) pg MCHC 30.8 L (31.0-35.0) g/dl RDW 19.8 H (11.0-16.0) % Plt Count 336 (160-400) X10*3/uL MPV 10.4 (9.4-12.3) fL Immature Gran % (Auto) 0.3 (0.0-0.4) % Neut % (Auto) 61.8 (45-73) % Lymph % (Auto) 28.3 (20-40) % [place] % (Auto) 7.4 (2-11) % Eos % (Auto) 1.6 (0-4) % Baso % (Auto) 0.6 (0-2) % Lymph # (Auto) 1.8 (1.2-4.9) X10*3/uL [place] # (Auto) 0.5 (0.1-1.2) X10*3/uL Eos # (Auto) 0.1 (0.0-0.4) X10*3/uL Baso # (Auto) 0.0 (0.0-0.2) X10*3/uL Abs Immat Gran (auto) 0.02 (0.00-0.03) X10*3/uL Absolute Neuts (auto) 3.8 (2.0-8.3) x10*3/uL Absolute Nucleated RBC 0.000 (0.0-0.012) X10*3/uL Nucleated RBC % (auto) 0.0 (0.0-0.2) /100WBC Sodium 138 (135-145) mmol/L Potassium 4.0 (3.3-5.1) mmol/L Chloride 105 (96-108) mmol/L Carbon Dioxide 24 (22-29) mmol/L Anion Gap 13 (12-20) BUN 7 L (9-16) mg/dL Creatinine 0.76 (0.5-1.4) mg/dL Estim Creat Clear Calc 100.8 Estimated GFR > 60 Random Glucose 96 (60-115) mg/dL Calcium 9.7 (8.4-10.2) mg/dL Magnesium 2.0 (1.6-2.6) mg/dL Total Bilirubin 0.3 (0.0-1.0) mg/dL Direct Bilirubin 0.1 (0.0-0.5) mg/dL AST 16 (5-31) U/L ALT 11 (0-31) U/L Alkaline Phosphatase 69 (39-117) U/L Troponin I High Sens < 2.7 (<3.5-17.0) ng/L Total Protein 7.3 (6.5-8.0) g/dL Albumin 4.3 (3.5-5.0) g/dL TSH 0.30 L (0.32-4.0) uIU/mL Independent Interpretation I performed an independent interpretation of an: EKG (Electrocardiogram interpreted by me normal sinus rhythm a rate [address]-T segment normal EKG) Interpretation: Normal EKG Discharge Plan Discharge Clinical Impression: Palpitations Patient Disposition: Home, Self-Care Instructions: Heart Palpitations (DC) Prescriptions: No Action ibuprofen 600 mg tablet 600 mg PO Q6H PRN (Reason: fever or pain) Qty: 30 0RF lorazepam [Ativan] 1 mg tablet 1 mg PO BEDTIME PRN (Reason: anxiety/sleep) Qty: 10 0RF Referrals: Alexa Lopes, [employer] [Primary Care Provider] - 2 days Stand Alone Forms: Work/School Release
[2023-04-23 13:17] VITALS: BP 121/81; PULSE 66; RESP 18; TEMP 36.4; O2SAT 100; BMI 29.4
--- NOTE | 2023-04-23 13:18 | ECG_ITS ---
Test Reason : ARRHYTHMIA Blood Pressure : / mmHG Vent. Rate : 063 BPM Atrial Rate : 063 BPM P-R Int : 164 ms QRS Dur : 070 ms QT Int : 384 ms P-R-T Axes : 032 052 030 degrees QTc Int : 392 ms Normal sinus rhythm with sinus arrhythmia Normal ECG When compared with ECG of 07-APR-2023 10:40, No significant change was found Referred By: Valentine Courtney Electronically Signed By:WENDI ESPINO MD
--- NOTE | 2023-04-23 14:14 | PC.NURSE ---
Patient reports sudden onset chest pain that started at 11am with palpitations, patient reports took propranolol that was prescribed for the palpitations and then started with a headache. Patient reports has hx of anemia and has been taking iron for the last 3 months. Denies sob and nausea
[2023-04-23 14:16] VITALS: PULSE 61
[2023-04-23 14:17] VITALS: PULSE 64
[2023-04-23 14:26] LABS: MANUAL DIFF FLAG NO
[2023-04-23 14:36] LABS: Basophils Percent Auto 0.6 % (0-2); Eosinophils Absolute Auto 0.1 X10*3/uL (0.0-0.4); Eosinophils Percent Auto 1.6 % (0-4); Hematocrit 46.5 % (37.0-47.0); Hemoglobin 14.3 g/dl (12.0-16.0); Imm Gran Abs Auto 0.02 X10*3/uL (0.00-0.03); Imm Gran Pct Auto 0.3 % (0.0-0.4); Lymphocytes Absolute Auto 1.8 X10*3/uL (1.2-4.9); Lymphocytes Percent Auto 28.3 % (20-40); Mean Corpuscular HGB Conc 30.8 g/dl (31.0-35.0); Mean Corpuscular Hemoglobin 23.8 pg (27.0-33.0); Mean Corpuscular Volume 77.2 fL (80.0-98.0); Mean Platelet Volume 10.4 fL (9.4-12.3); Monocytes Absolute Auto 0.5 X10*3/uL (0.1-1.2); Monocytes Percent Auto 7.4 % (2-11); Neutrophils Absolute Auto 3.8 x10*3/uL (2.0-8.3); Neutrophils Percent Auto 61.8 % (45-73); Platelet Count 336 X10*3/uL (160-400); Red Blood Count 6.02 X10*6/uL (4.20-5.50); Red Cell Distribution Width 19.8 % (11.0-16.0); White Blood Count 6.2 X10*3/uL (4.8-10.8)
[2023-04-23 14:52] LABS: Alanine Aminotransferase 11 U/L (0-31); Albumin Level 4.3 g/dL (3.5-5.0); Alkaline Phosphatase 69 U/L (39-117); Anion Gap 13 (12-20); Aspartate Amino Transferase 16 U/L (5-31); Bilirubin Direct 0.1 mg/dL (0.0-0.5); Bilirubin Total 0.3 mg/dL (0.0-1.0); Blood Urea Nitrogen 7 mg/dL (9-16); Calcium 9.7 mg/dL (8.4-10.2); Carbon Dioxide 24 mmol/L (22-29); Chloride 105 mmol/L (96-108); Creatinine Clr Calc Pharmacy 100.8; Estimated Glomerular Filt Rate > 60; Glucose Random 96 mg/dL (60-115); Sodium 138 mmol/L (135-145); Total Protein 7.3 g/dL (6.5-8.0)
[2023-04-23 15:08] LABS: Troponin-I High Sensitivity < 2.7 ng/L (<3.5-17.0)
[2023-04-23 15:12] VITALS: BP 110/67; BP 116/77; BP 180/70; PULSE 55; PULSE 58; PULSE 66
[2023-04-23 15:46] LABS: Free T4 (Free Thyroxine) 0.88 ng/dL (0.71-1.85)
== END 2023-04-23 15:50 | disposition home or self-care (01) ==
PROVIDERS: Physician Assistant; Emergency Provider Emergency Medicine; PCP Nurse Practitioner Family
DX: R00.2 Palpitations (principal); R07.9 Chest pain, unspecified; R51.9 Headache, unspecified
CPT/HCPCS: 36415; 80048; 80076; 83735; 84439; 84443; 84484; 85025; 93005; 99284; 99285

== ENCOUNTER 2023-04-27 08:03 | Outpatient (AMB) | payer BC, SELFPAY ==
[2023-04-27 08:15] VITALS: BP 114/72; PULSE 83; BMI 29.7
--- NOTE | 2023-04-27 08:15 | A.OFFVIS_ITS ---
Intake Vital Signs 04/27/23 08:15 Height 5 ft 1 in Weight 157 lb 6.561 oz BMI 29.7 BP 114/72 Blood Pressure Location Lt brachial Position Sitting Pulse 83 Pulse Source Pulse Oximeter Intake Visit Reasons: [facility] [place] [facility] fu/ chest pain/palps (HS) Manager Voice Required: No Allergies tomato Allergy (Verified 04/27/23 08:17) Rash Medication List - Last Reconciled 04/27/23 by Denise Lopes NP-C hydroxyzine HCl 25 mg PO QID PRN ibuprofen 600 mg PO Q6H PRN propranolol 10 mg PO BID HPI [facility] [place] [facility] fu/ chest pain/palps (HS) HPI Details Eduardo is a 27 year old female with no significant PMH who has been to the ER on 5 occassions since January for chest discomfort and palpitations without significant findings. She was referred to cardiology for evaluation. Today she presents for cardiology consultation. She reports no cardiac history there diagnosis. Since January she has been getting random, intermittent pressure sensation in different areas of the left chest and mid chest lasting minutes to hours without any known aggravating orally in factors. She has also been getting rapid heart palpitations which seem to occur suddenly with docume nted heart rates up to as high as 170 with slow gradual improvement. She monitors her heart rate on her Apple watch. She reports fatigue after the heart palpitation and chest discomfort episodes. At times the chest discomfort preceeds the heart palpitations but not always. She was put on propanolol recently without significant improvement in symptoms. She will drink water when she has the rapid heartbeat which she feels may help. No shortness of breath, dizziness, presyncope, syncope, falls. No PND, orthopnea or edema. She reports being active during the day with school and work. She does not do any routine exercise. Nonsmoker, cut out all caffeinated beverages. No routine alcohol use. No family history of heart disease. She carries no diagnosis of hypertension, hyperlipidemia or diabetes. [facility] Social History Alcohol intake: former Review of Systems Const All systems reviewed & are unremarkable except as noted in HPI and below ENT Denies dizziness Card Details: Fatigue with chest pain and palpitations Reports chest pain, Denies chest pain at rest, Denies chest pain with activity, Reports rapid heart rate, Denies pedal edema, Denies edema, Denies leg edema, Denies lightheadedness, Denies palpitations, Denies dyspnea, Denies dyspnea on exertion and Denies orthopnea Resp Denies cough, Denies dyspnea and Denies dyspnea on exertion GI Denies hematochezia and Denies change in stool character Musc Denies abnormal gait, Denies limited range of motion, Denies muscle cramps, Denies muscle weakness, Denies numbness, Denies radiating pain into limb, Denies stiffness and Denies tingling Neuro Denies abnormal gait, Denies dizziness, Denies numbness and Denies tingling Endo Denies palpitations Physical Exam Vital Signs: Last Vital Signs Pulse 83 04/27/23 08:15 BP 114/72 04/27/23 08:15 BMI result Body Mass Index 29.7 Const General: cooperative, healthy appearing, comfortable and no acute distress Orientation/consciousness: patient oriented x3 Neck Neck: Yes normal visual inspection Resp Effort & Inspection: normal respiratory effort Auscultation: clear to auscultation bilaterally, no crackles, no rales, no rhonchi and no wheezes Cardio Jugular venous distension: no JVD Rate: regular rate Rhythm: regular rhythm Heart sounds: S1 normal heart sound present, S2 normal heart sound present, no murmurs and no rubs Neuro General: patient oriented x3 Extrem General: Yes normal to inspection and No no pedal edema Psych Appearance: grossly normal Mental Status: mental status grossly normal Speech and movement: Normal speech and movement present Assessment & Plan Assessment & Plan (1) Chest discomfort: Code(s): R07.89 - Other chest pain Plan: Reports of chest discomfort, atypical as described above. No exertional chest discomfort. No significant cardiac risk factors. Several recent ER visits and has ruled out for ACS. Last EKG done on 04/23/2023 showed sinus rhythm with sinus arrhythmia, no acute ST or T-wave abnormalities, normal ME, QRS and QTC intervals. No reports of chest discomfort at this visit. Will check an echocardiogram to assess for structural heart disease. Will check an exercise stress test to evaluate for arrhythmia, ischemia. Cardiology follow-up in 4-6 weeks, sooner if needed (2) Heart palpitations: Code(s): R00.2 - Palpitations Plan: Report of heart palpitations, occurring since January 2023, where her heart goes fast and gradually returns to normal. Feeling of fatigue after her heart palpitations. Recent labs do show TSH 0.3. Prior test did show anemia a few months ago however that has corrected. ER evaluations without findings. Last EKG as above. Heart regular on examination today, no murmur noted. She tells me she did wear a 48 hour Holter monitor and was told she had no arrhythmia. Will have her continue on propanolol at this time. Will order a 7 day Holter monitor. She tells me she gets symptoms every 2-3 days. Avoid all stimulants, caffeinated beverages. Continue activity as tolerated. ED care if needed for sustained rapid palpitations. Follow-up once test results are known. Orders: Orders CA echo transthoracic complete Today R07.89 - Other chest pain ECG 7 day holter monitor Today R00.2 - Palpitations CA stress test Today R07.89 - Other chest pain Coding Level of Care Code New Pt Level 3 (82656) Diagnoses Chest discomfort R07.89 Heart palpitations R00.2 Time Spent (min) 26
== END 2023-04-27 08:44 | disposition home or self-care (01) ==
PROVIDERS: PCP Nurse Practitioner Family; Visit Provider Nurse Practitioner Family
DX: R07.89 Other chest pain (principal); R00.2 Palpitations
CPT/HCPCS: 99203

== ENCOUNTER → 2023-04-27 08:03 | Outpatient (BNVA) | payer OTHER, SELFPAY | PROVIDERS: PCP Nurse Practitioner Family; Visit Provider Nurse Practitioner Family ==

== ENCOUNTER → 2023-05-19 08:02 | Outpatient (REF) | payer BC, MEDICAID, SELFPAY ==
--- NOTE | 2023-05-19 08:05 | CA_ITS ---
Acquisition Time: 2023-05-19 08:47:17 Total Exercise Time: 00:07:09 Test Indications: CP Medications: SEE H Protocol: EMELY Max HR: 171 BPM 88% of Pred: 194 BPM Max BP: 138/070 mmHG Max Work Load: 8.7 METS Exercise stress test exercise 7 min and 9 sec of Emely protocol achieving 88% MPHR, with starting chest pain 4-5/10 and exercise chest pain 3/10, with mild SOB, no arrhythmias, with normotensive response to exercise, without EKG changes. Chest pain resolved to baseline with rest. Test reviewed with Dr. Espinal Referred By: Denise Lopes Overread By: Randee Slade
--- NOTE | 2023-05-19 08:05 | CA_ITS ---
Transthoracic Echocardiogram Patient (Last, First, Middle): Kalie Brown, Gender: Female Date of : 1995 Age: 27 Procedure Date: 05/19/2023 Procedure Type: Transthoracic Echocardiogram Location: OP Height: 154.94 cm Weight: 69.85 kg BSA: 1.69 m2 Heart Rate: 84 bpm BP: 105 / 75 mmHg Material Handler: CECILIO Springer MD: Denise Lopes OFFBEARERRuchiC Tip Scourer: Wilman Espinal MD Symptoms: R07.89 - Other chest pain Study Quality: Fair ECG Rhythm: Sinus Conclusions: - Essentially normal study Findings Left Ventricle Normal left ventricular size, thickness, and systolic function. The visually estimated ejection fraction is between 60-65%. Spectral Doppler is indicative of a normal filling pattern. Right Ventricle Normal right ventricular cavity size and systolic function. Atria Both atria are normal in size. Interatrial shunt cannot be excluded. Aortic Valve Normal aortic valve structure and function. There is no aortic valve stenosis. There is no aortic valve regurgitation. Mitral Valve Likely normal mitral valve structure and function. There is trace mitral valve regurgitation. There is no mitral valve stenosis. Pulmonic Valve The pulmonic valve is likely normal. Tricuspid Valve Likely normal tricuspid valve structure and function. There is trace tricuspid valve regurgitation. The right ventricular systolic pressure is normal. The right ventricular systolic pressure is 11 mmHg. Normal right atrial pressure. There is no evidence of pulmonary hypertension. Great Vessels All visible segments of the aorta are normal in size. The pulmonary artery was not well visualized. Venous The inferior vena cava is normal in size and collapses greater than 50% with inspiration. Pericardium/Pleural There is no evidence of pericardial effusion. Prior Study Comparison No prior study available for comparison. Measurements 2D Linear Measurements IVSd: 0.64 0.6-0.9/0.6-1.0 cm LVIDd: 4.67 3.9-5.3/4.2-5.9 cm LVIDd Index: 2.76 2.4-3.2/2.2-3.1 cm/m2 LVIDs: 2.65 2.0-3.6 cm LVPWd: 0.66 0.7-1.1 cm LA Diam: 2.60 2.7-3.8/3.0-4.0 cm LAIDs Index: 1.54 1.5-2.3 cm/m2 LV Mass: 114.92 67-162/88-224 g LV Mass Index: 68.00 43-95/49-115 g/m2 LVOT Diam: 1.80 3.0+(-)1.3 cm 2D Systolic Function EF 4C: 58.10 >55% EF 2C: 61.20 >55% EF BiP: 60.40 >55% Mitral Valve MV Pk E: 0.94 MV PK A: 0.70 MV Decel Time: 186.00 E/A: 1.40 E'Lateral: 11.30 E'Medial: 12.50 E/E' Med: 7.50 E/E' Lat: 8.30 PHT: 55.00 MVA PHT: 4.00 Decel Wetzel: 5.05 Aortic Valve AoV Pk Darrell: 1.52 AoV Mn Darrell: 1.04 AoV VTI: 0.33 AoV Pk Grad: 9.00 Aov Mn Grad: 5.00 DOUG Cont.VTI: 1.77 LVOT LVOT Pk Darrell: 1.07 LVOT Mn Darrell: 0.79 LVOT VTI: 0.23 LVOT Pk Grad: 5.00 LVOT Mn Grad: 3.00 LVOT Diam: 1.80 LVOT Area: 2.54 Diastolic Function MV Pk E: 0.94 MV Pk A: 0.70 E/A: 1.40 E'Medial: 12.50 E/E' Med: 7.50 E' Laterial: 11.30 E/E' Lat: 8.30 Right Ventricle TAPSE (mm): 23.00 TVS' Darrell: 12.40 Tricuspid Valve TR Pk Darrell: 1.43 TR Pk Grad: 8.00 RA Press: 3.00 RVSP: 11.00 Great Vessels Aorta Sinus of Valsalva: 2.80 2.0-3.5 cm Ao Asc: 2.50 2.1-3.4 cm Pulmonary Valve PV Pk Darrell: 1.00 Peak PV Grad: 4.00 Updated in Other Vendor System with Status of Final Wilman Espinal MD electronically signed on 05/19/2023 4:09:06 PM with status of Final
== END ==
LOC: HO.CARD 08:02
PROVIDERS: PCP Nurse Practitioner Family; Visit Provider Nurse Practitioner Family
DX: R07.89 Other chest pain (principal)
CPT/HCPCS: 93017; 93306

== ENCOUNTER → 2023-05-19 08:05 | Outpatient (BNV) | payer BC, SELFPAY | PROVIDERS: PCP Nurse Practitioner Family; Visit Provider Nurse Practitioner | DX: R07.89 Other chest pain (principal) | CPT/HCPCS: 93016; 93018; 93306 ==

== ENCOUNTER → 2023-06-02 08:10 | Outpatient (REF) | payer BC, SELFPAY ==
--- NOTE | 2023-06-02 08:12 | HM_ITS ---
* Total monitoring time 7 days. * Underlying rhythm is sinus. Average ventricular rate 85/Min. Range 52 to 163/Min. * Very rare PACs. One isolated PVC. * No sustained arrhythmias. * No significant pauses or AV blocks. * No patient markers or events in diary. MTDD
== END ==
LOC: HO.CARD 08:10
PROVIDERS: Visit Provider Nurse Practitioner Family
DX: R00.2 Palpitations (principal)
CPT/HCPCS: 93242

== ENCOUNTER → 2023-06-02 08:12 | Outpatient (BNV) | payer BC, SELFPAY | PROVIDERS: Visit Provider Internal Medicine | DX: I49.1 Atrial premature depolarization (principal) | CPT/HCPCS: 93244 ==

== ENCOUNTER 2023-06-08 08:06 | Outpatient (AMB) | payer BC, SELFPAY ==
[2023-06-08 08:17] VITALS: BP 114/70; PULSE 61; BMI 29.7
--- NOTE | 2023-06-08 08:17 | A.OFFVIS_ITS ---
Intake Vital Signs 06/08/23 08:17 Height 5 ft 1 in Weight 157 lb 6.561 oz BMI 29.7 BP 114/70 Blood Pressure Location Lt brachial Position Sitting Pulse 61 Pulse Source Pulse Oximeter Intake Visit Reasons: 6 wk fu after ett/echo/7 d holter Rehanger Required: No Allergies tomato Allergy (Verified 06/08/23 08:19) Rash Medication List - Last Reconciled 06/08/23 by EREN De DiosC hydroxyzine HCl 25 mg PO QID PRN ibuprofen 600 mg PO Q6H PRN propranolol 10 mg PO BID HPI 6 wk fu after ett/echo/7 d holter HPI Details Eduardo is a 27-year-old female with reports of heart palpitations and random chest discomfort who recently underwent an echocardiogram, exercise stress test and is wearing a Holter monitor, now presenting for follow-up. Today she reports that she still gets a random pressure in her chest. Previously it had been more on the left and now it is more in the middle of her chest. It is not brought on by physical activity. She recalls 1 episode where her heart was beating fast. She had the heart monitor on at that time. No lightheadedness, presyncope, syncope, falls. No PND, orthopnea or edema. Tolerates normal ADLs without symptoms. [facility] Social History Alcohol intake: former Review of Systems Const All systems reviewed & are unremarkable except as noted in HPI and below ENT Denies dizziness Card Reports chest pain, Denies chest pain at rest, Denies chest pain with activity, Reports rapid heart rate, Denies pedal edema, Denies edema, Denies leg edema, Denies lightheadedness, Denies palpitations, Denies dyspnea, Denies dyspnea on exertion and Denies orthopnea Resp Denies cough, Denies dyspnea and Denies dyspnea on exertion GI Denies hematochezia and Denies change in stool character Musc Denies abnormal gait, Denies limited range of motion, Denies muscle cramps, Denies muscle weakness, Denies numbness, Denies radiating pain into limb, Denies stiffness and Denies tingling Neuro Denies abnormal gait, Denies dizziness, Denies numbness and Denies tingling Endo Denies palpitations Physical Exam Vital Signs: Last Vital Signs Pulse 61 06/08/23 08:17 BP 114/70 06/08/23 08:17 BMI result Body Mass Index 29.7 Const General: cooperative, healthy appearing, comfortable and no acute distress Orientation/consciousness: patient oriented x3 Neck Neck: Yes normal visual inspection Resp Effort & Inspection: normal respiratory effort Auscultation: clear to auscultation bilaterally, no crackles, no rales, no rhonchi and no wheezes Cardio Jugular venous distension: no JVD Rate: regular rate Rhythm: regular rhythm Heart sounds: S1 normal heart sound present, S2 normal heart sound present, no murmurs and no rubs Neuro General: patient oriented x3 Extrem General: Yes normal to inspection, No no pedal edema and No calf tenderness Psych Appearance: grossly normal Mental Status: mental status grossly normal Speech and movement: Normal speech and movement present Assessment & Plan Assessment & Plan (1) Chest discomfort: Code(s): R07.89 - Other chest pain Plan: Reports of chest discomfort, atypical, No exertional chest discomfort. No significant cardiac risk factors. Several recent ER visits and has ruled out for ACS. Last EKG done on 04/23/2023 showed sinus rhythm with sinus arrhythmia, no acute ST or T-wave abnormalities, normal PA, QRS and QTC intervals. Echocardiogram done on 05/19/2023 showed normal study, EF 60-65%. Exercise stress test done 05/19/2023 with exercise 7 minutes, chest discomfort at baseline which did improve some during exercise, no EKG changes of ischemia. Informed her that chest discomfort is likely noncardiac in nature. Signs and symptoms of true angina reviewed. (2) Heart palpitations: Code(s): R00.2 - Palpitations Plan: Report of heart palpitations, occurring since January 2023, where her heart goes fast and gradually returns to normal. Feeling of fatigue after her heart palpitations. Recent labs do show TSH 0.3. Prior test did show mild anemia a few months ago however that has corrected. ER evaluations without findings. Last EKG as above. Heart regular on examination today, no murmur noted. She tells me she did wear a 48 hour Holter monitor and was told she had no arrhythmia. Currently wearing a one-week Holter monitor. Plan to call her with results once available. Will have her continue on low-dose propanolol at this time. She could be having runs of SVT. Avoid all stimulants, caffeinated beverages. Continue activity as tolerated. ED care if needed for sustained rapid palpitations. Follow-up to be determined once test results are known. Plan Time spent on chart review, documentation, interview and assessment Coding Level of Care Code Est Pt Level 3 (48886) Diagnoses Chest discomfort R07.89 Heart palpitations R00.2 Time Spent (min) 22
== END 2023-06-08 08:37 | disposition home or self-care (01) ==
PROVIDERS: Visit Provider Nurse Practitioner Family
DX: R07.89 Other chest pain (principal); R00.2 Palpitations
CPT/HCPCS: 99213

== ENCOUNTER → 2023-06-08 08:06 | Outpatient (BNVA) | payer BC, SELFPAY | PROVIDERS: PCP Nurse Practitioner Family; Visit Provider Nurse Practitioner Family ==

== ENCOUNTER 2023-11-22 19:19 | Emergency (ER) | payer OTHER, SELFPAY ==
[2023-11-22 19:21] VITALS: BP 141/96; PULSE 94; RESP 18; TEMP 37; O2SAT 96; BMI 30.2
--- NOTE | 2023-11-22 19:22 | ED_ITS ---
HPI - General Adult General Chief complaint: Dyspnea Stated complaint: SOB Time Seen by Provider: 11/22/23 22:42 Source: patient, RN notes reviewed and old records reviewed Mode of arrival: ambulatory Limitations: no limitations History of Present Illness ED Provider: Shey WARREN narrative: 28-year-old female with past medical history significant for anxiety, GERD presents for evaluation of shortness of breath. Patient reports for the last few days she has had intermittent episodes of shortness of breath. Most recent episode was around noon today and lasted about 7 minutes. She states these symptoms are unrelated to exertion and generally random. They occur while she is sitting at a desk She denies any coughing, fevers, chills Denies any chest pain She reports that 2 and half weeks ago she stopped her escitalopram because she felt as though she could not focus during school She has p.r.n. hydroxyzine that she usually only uses for sleep Related Data Home Medications ?Medication ?Instructions ?Recorded ?Confirmed hydroxyzine HCl 25 mg tablet 25 mg PO QID PRN anxiety 04/27/23 06/08/23 propranolol 10 mg tablet 10 mg PO BID 04/27/23 06/08/23 Previous Rx's ?Medication ?Instructions ?Recorded ibuprofen 600 mg tablet 600 mg PO Q6H PRN fever or pain 02/19/23 #30 tabs Allergies Allergy/AdvReac Type Severity Reaction Status Date / Time tomato Allergy Rash Verified 11/22/23 19:22 Review of Systems 2 Constitutional: Constitutional: Denies body ache(s), Denies chills and Denies fever(s) Eyes: Eyes: Denies blurry vision Cardiovascular: Cardiovascular: Denies chest pain and Reports dyspnea Respiratory: Respiratory: Denies cough and Reports dyspnea Gastrointestinal: Gastrointestinal: Denies abdominal pain, Denies nausea and Denies vomiting Musculoskeletal: Musculoskeletal: Denies back pain Integumentary/Breasts: Skin/Breast: Denies rash PMFSH Social History Social History Alcohol intake: former Advance Directives: No Advance Directives Information Provided: No Do you have a plan to hurt others: No Plan Physical Exam ED Vital Signs: Vital Signs - 24 hr 11/22/23 19:21 11/22/23 22:14 Temperature 98.6 F 98.2 F Pulse Rate 94 75 Respiratory Rate 18 16 Blood Pressure 141/96 H 111/79 Pulse Oximetry 96 97 Oxygen Delivery Method Room Air Room Air BMI result Body Mass Index 30.2 Const General: healthy appearing, comfortable, no acute distress, alert and awake Nutritional Appearance: well nourished Orientation/consciousness: patient oriented x3 HENMT Head: Yes normocephalic and Yes atraumatic Throat: Yes posterior oropharynx normal Eyes Eyelids: Yes eyelids normal Conjunctivae: conjunctivae normal Sclerae: sclerae normal Corneas: corneas normal Pupils: Equal, round and reactive pupils present EOM: EOMs intact bilaterally Neck Neck: Yes full ROM Resp Effort & Inspection: normal respiratory effort, able to speak in complete sentences, no audible wheezes and not labored Auscultation: clear to auscultation bilaterally Cardio Rate: regular rate Rhythm: regular rhythm Skin General skin exam: elasticity normal Neuro General: patient oriented x3 Cranial nerves: Yes Equal, round and reactive pupils present and Yes Bilaterally intact EOM present Cognition (Neuro): normal cognition Extrem Other: Moving all extremities well without any obvious deformities Course Course Course Narrative: This is a rapid medical exam performed by Tran Sargent NP: Additional HPI, ROS, PE not included below will be deferred to primary provider. Patient is a 28-year-old female with history of anxiety presenting to the emergency department with complaint of several brief episodes of shortness of breath throughout the day today. Reports one episode of coughing. Denies fever. Reports mild chest pain. Plan: ekg, labs, viral swabs Medical Decision Making Medical Decision Making [facility] Narrative: 28-year-old female with past medical history as documented above presents for evaluation of intermittent episodes of shortness of breath. Her vital signs are stable, her lungs are clear to auscultation, she is currently asymptomatic. Her workup was largely unremarkable. Her viral swabs were negative, EKG is nonischemic. Labs are without acute findings. Her symptoms are most likely related to anxiety and recently discontinued her escitalopram. She has no risk factors for PE. Patient was advised to follow-up with her PCP Differential Diagnosis Differential Diagnoses: The differential diagnosis associated with the presentation includes Dyspnea Anxiety Bronchitis Pneumonia Lab Data [facility] Lab Attestation statement: I reviewed the patient's lab results. No leukocytosis, no anemia. Normal platelet count. No electrolyte abnormalities 11/22/23 19:35 11/22/23 19:35 Labs: Lab Results 11/22/23 Range/Units 19:35 WBC 8.5 (4.8-10.8) X10*3/uL RBC 5.16 (4.20-5.50) X10*6/uL Hgb 12.4 (12.0-16.0) g/dl Hct 39.3 (37.0-47.0) % MCV 76.2 L (80.0-98.0) fL MCH 24.0 L (27.0-33.0) pg MCHC 31.6 (31.0-35.0) g/dl RDW 15.9 (11.0-16.0) % Plt Count 313 (160-400) X10*3/uL MPV 10.3 (9.4-12.3) fL Immature Gran % (Auto) 0.2 (0.0-0.4) % Neut % (Auto) 52.2 (45-73) % Lymph % (Auto) 35.8 (20-40) % [place] % (Auto) 9.3 (2-11) % Eos % (Auto) 2.0 (0-4) % Baso % (Auto) 0.5 (0-2) % Lymph # (Auto) 3.0 (1.2-4.9) X10*3/uL [place] # (Auto) 0.8 (0.1-1.2) X10*3/uL Eos # (Auto) 0.2 (0.0-0.4) X10*3/uL Baso # (Auto) 0.0 (0.0-0.2) X10*3/uL Abs Immat Gran (auto) 0.02 (0.00-0.03) X10*3/uL Absolute Neuts (auto) 4.4 (2.0-8.3) x10*3/uL Absolute Nucleated RBC 0.000 (0.0-0.012) X10*3/uL Nucleated RBC % (auto) 0.0 (0.0-0.2) /100WBC Sodium 138 (135-145) mmol/L Potassium 3.9 (3.3-5.1) mmol/L Chloride 104 (96-108) mmol/L Carbon Dioxide 24 (22-29) mmol/L Anion Gap 14 (12-20) BUN 10 (9-16) mg/dL Creatinine 0.83 (0.5-1.4) mg/dL Estim Creat Clear Calc 92.7 Estimated GFR > 60 Random Glucose 104 (60-115) mg/dL Calcium 10.0 (8.4-10.2) mg/dL Total Bilirubin 0.3 (0.0-1.0) mg/dL AST 14 (5-31) U/L ALT 12 (0-31) U/L Alkaline Phosphatase 68 (39-117) U/L Troponin I High Sens < 2.7 (<3.5-17.0) ng/L Total Protein 7.7 (6.5-8.0) g/dL Albumin 4.4 (3.5-5.0) g/dL Beta HCG, Quant < 2 mIU/mL Influenza Type A (PCR) NEGATIVE (Negative) Influenza Type B (PCR) NEGATIVE (Negative) RSV RNA Qual (PCR) NEGATIVE (Negative) SARS-CoV-2 RNA (RT-PCR) NEGATIVE (Negative) Independent Interpretation I performed an independent interpretation of an: EKG (Normal sinus rhythm with a rate of [address] segment changes) Discharge Plan Discharge Clinical Impression: Acute dyspnea Patient Disposition: Home, Self-Care Instructions: Anxiety (ED) Additional Instructions: Your workup in the ER today was reassuring. This includes your blood work, your viral swabs, and your EKG Your symptoms may be related to anxiety You may use hydroxyzine as needed for further episodes Follow-up with your primary doctor or return for new or worsening symptoms Prescriptions: No Action ibuprofen 600 mg tablet 600 mg PO Q6H PRN (Reason: fever or pain) Qty: 30 0RF propranolol 10 mg tablet 10 mg PO BID hydroxyzine HCl 25 mg tablet 25 mg PO QID PRN (Reason: anxiety) Print Language: Kinyarwanda
--- NOTE | 2023-11-22 19:24 | ECG_ITS ---
Test Reason : shortness of breath Blood Pressure : / mmHG Vent. Rate : 098 BPM Atrial Rate : 098 BPM P-R Int : 152 ms QRS Dur : 070 ms QT Int : 340 ms P-R-T Axes : 046 053 030 degrees QTc Int : 434 ms Normal sinus rhythm Normal ECG When compared with ECG of 23-APR-2023 13:32, Vent. rate has increased BY 35 BPM Referred By: Deb Sargent Electronically Signed By:CLAUDIA BAUM MD
[2023-11-22 19:44] LABS: MANUAL DIFF FLAG NO
[2023-11-22 19:46] LABS: Basophils Percent Auto 0.5 % (0-2); Eosinophils Absolute Auto 0.2 X10*3/uL (0.0-0.4); Hematocrit 39.3 % (37.0-47.0); Hemoglobin 12.4 g/dl (12.0-16.0); Imm Gran Abs Auto 0.02 X10*3/uL (0.00-0.03); Imm Gran Pct Auto 0.2 % (0.0-0.4); Lymphocytes Percent Auto 35.8 % (20-40); Mean Corpuscular HGB Conc 31.6 g/dl (31.0-35.0); Mean Corpuscular Volume 76.2 fL (80.0-98.0); Mean Platelet Volume 10.3 fL (9.4-12.3); Monocytes Absolute Auto 0.8 X10*3/uL (0.1-1.2); Monocytes Percent Auto 9.3 % (2-11); Neutrophils Absolute Auto 4.4 x10*3/uL (2.0-8.3); Neutrophils Percent Auto 52.2 % (45-73); Platelet Count 313 X10*3/uL (160-400); Red Blood Count 5.16 X10*6/uL (4.20-5.50); Red Cell Distribution Width 15.9 % (11.0-16.0); White Blood Count 8.5 X10*3/uL (4.8-10.8)
[2023-11-22 20:10] LABS: Alanine Aminotransferase 12 U/L (0-31); Albumin Level 4.4 g/dL (3.5-5.0); Alkaline Phosphatase 68 U/L (39-117); Anion Gap 14 (12-20); Aspartate Amino Transferase 14 U/L (5-31); Bilirubin Total 0.3 mg/dL (0.0-1.0); Blood Urea Nitrogen 10 mg/dL (9-16); Carbon Dioxide 24 mmol/L (22-29); Chloride 104 mmol/L (96-108); Creatinine Clr Calc Pharmacy 92.7; Estimated Glomerular Filt Rate > 60; Glucose Random 104 mg/dL (60-115); Potassium 3.9 mmol/L (3.3-5.1); Sodium 138 mmol/L (135-145); Total Protein 7.7 g/dL (6.5-8.0)
[2023-11-22 20:27] LABS: HCG Quantitative < 2 mIU/mL
[2023-11-22 20:28] LABS: Troponin-I High Sensitivity < 2.7 ng/L (<3.5-17.0)
[2023-11-22 20:40] LABS: Influenza A PCR NEGATIVE (Negative); Influenza B PCR NEGATIVE (Negative); Resp Syncy Virus RNA Qual PCR NEGATIVE (Negative); SARS COV2 PCR INHOUSE NEGATIVE (Negative)
[2023-11-22 22:14] VITALS: BP 111/79; PULSE 75; RESP 16; TEMP 36.8; O2SAT 97
[2023-11-22 23:25] VITALS: BP 121/73; PULSE 66; RESP 18; TEMP 36.9; O2SAT 98
== END 2023-11-22 23:26 | disposition home or self-care (01) ==
PROVIDERS: Registered Nurse Emergency; Emergency Provider Emergency Medicine Emergency Medical Services; PCP Nurse Practitioner Family
DX: R06.09 Other forms of dyspnea (principal); R06.02 Shortness of breath; Z03.818 Encounter for observation for suspected exposure to other biological agents ruled out
CPT/HCPCS: 0241U; 80053; 84484; 84702; 85025; 93005; 99283; 99284

== ENCOUNTER → 2023-11-22 19:24 | Outpatient (BNV) | payer OTHER, SELFPAY | PROVIDERS: Emergency Provider Emergency Medicine Emergency Medical Services; PCP Nurse Practitioner Family; Visit Provider Internal Medicine Cardiovascular Disease | DX: R06.02 Shortness of breath (principal) | CPT/HCPCS: 93010 ==